=== PATIENT | male | born 1955 | race Caucasian/White ===

== ENCOUNTER 2021-06-06 00:01 | Emergency (ER) | payer OTHER ==
[2021-06-06 00:57] LABS: HEMOGLOBIN 15.4 gm/dl (14.0-17.5); RED BLOOD COUNT 5.26 M/UL (4.20-5.50); WHITE BLOOD COUNT 7.2 K/UL (4.5-11.0)
[2021-06-06 01:23] LABS: BUN/CREATININE RATIO 23 (0-10)
== END 2021-06-06 04:15 | disposition home or self-care (01) ==
LOC: ER1 00:01
PROVIDERS: Emergency Medicine
DX: E11.65 Type 2 diabetes mellitus with hyperglycemia (principal); R42 Dizziness and giddiness; Z79.84 Long term (current) use of oral hypoglycemic drugs
CPT/HCPCS: 70450; 80048; 82550; 82553; 82962; 83735; 83874; 84484; 85025; 93005; 99284